=== PATIENT | female | born 1960 | race Caucasian/White ===

== ENCOUNTER 2022-09-05 05:45 | Emergency (ER) | payer MEDICAID ==
[~2022-09-05] VITALS: Ht 147.3 cm; Wt 57.1 kg
[2022-09-05 05:50] VITALS: TEMP 97.9; O2SAT 98
[2022-09-05 08:45] VITALS: BP 129/62; PULSE 58; RESP 16
[2022-09-05] MEDS ORDERED: IBUPROFEN 600MG TABLET PO ONE (08:45)
[2022-09-05] MEDS ORDERED: IBUP-2029 MT (10:06)
== END 2022-09-05 10:20 | disposition home or self-care (01) ==
LOC: ER 05:45
DX: S80.02XA Contusion of left knee, initial encounter (principal); S80.01XA Contusion of right knee, initial encounter; S50.02XA Contusion of left elbow, initial encounter; E11.9 Type 2 diabetes mellitus without complications; E78.00 Pure hypercholesterolemia, unspecified; I10 Essential (primary) hypertension; W18.39XA Other fall on same level, initial encounter; Y93.89 Activity, other specified; Y92.89 Other specified places as the place of occurrence of the external cause; Y99.8 Other external cause status
CPT/HCPCS: 73562; 99283